=== PATIENT | male | born 1995 | race Caucasian/White ===

== ENCOUNTER 2017-05-25 01:07 | Emergency (ER) | payer BC, OTHER ==
[~2017-05-25] VITALS: Ht 193 cm; Wt 93.2 kg
[2017-05-25 01:12] VITALS: BP 156/86; PULSE 99; TEMP 98.9
[2017-05-25] MEDS ORDERED: NORCOELIX PO ×2 (02:00→02:31)
== END 2017-05-25 02:37 | disposition home or self-care (01) ==
LOC: COL.ER 01:07
DX: B27.90 Infectious mononucleosis, unspecified without complication (principal)
CPT/HCPCS: J8540